=== PATIENT | male | born 1960 | race Caucasian/White ===

== ENCOUNTER 2024-02-15 11:19 | Day surgery (SDC) | payer BC ==
[~2024-02-15] VITALS: Ht 180.3 cm; Wt 109.5 kg
[2024-02-15] VITALS (7 sets, daily range): BP systolic 128–158; BP diastolic 75–78; PULSE 70–83; TEMP 97.8–98
[~2024-02-15 11:19] MED LIST: ALBUTEROL SULFAT3 M3; ALBUTEROL0.83 MG/ML IH; ALBUTEROL1.25 MG/3 IH; ALEVE 220MG220 MG PO; AMBIEN 10MG10 MG PO; ANTI-DIARRHEAL2 MG PO; ASPIRIN 32325 MG/TAB PO; BALANCE B-1001 TA1 PO; BYSTOLIC10 MG PO; BYSTOLIC20 MG PO; CALCIUM1 CAP PO; CATAPRES 0.1MG0.1 MG PO; CLARITIN 1010 MG/TAB PO; COUGH & COLD1 TAB PO; CURCUMIN95% PO; DIOVAN 160MG160 MG PO; DIOVAN HCT 12.51 TA2 PO; FLEXERIL 1010 MG/TAB PO; FLONASE NASAL S16 GM NS; FLONASEALLERGY NS; GOOD SENSE SLEE25 M1 PO; IMDUR 30MG30 MG/TAB PO; LIORESAL 1010 MG/TAB; LUTEIN20 M1 PO; MAG-OX 400400 MG/TAB PO; MEDI SLEEP; MELATONIN5 M1 SL; MULTIPLE VITAMI1 CAP PO; MULTIPLE VITAMI1 TA5 PO; NATURAL FISH1200 MG PO; NITROSTAT0.4 MG/TAB SL; OSTEO-BI-FLEX 21 TAB PO; POTASSIUM; PRILOSEC 20MG20 MG PO; PROAIR HFA0.09 MG/AC IH; PROBIOTIC-10 370 MG PO; PROBIOTIC-MAJOR PO; PULMICORT90 MCG/Act; REQUIP 0.5MG0.5 MG PO; REQUIP 1MG T1 MG/TAB PO; ROBAXIN 50500 MG/TAB PO; SINGULAIR 110 MG/TAB PO; SOMA 350MG350 MG/TAB PO; TRICOR145 MG PO; TURMERIC500 MG PO; XOPENEX 0.0.63 MG/3 IH; ZANAFLEX 4MG TAB4 MG PO; ZEAXANTHIN PO; ZYRTEC 10MG10 MG PO; [UNRECOGNIZED DRUG - OTHER] PO
[2024-02-15] MEDS ORDERED: LR 1,000 ML IV SCH (12:00)
[2024-02-15] MEDS ORDERED: Famotidine 20 MG TAB PO SCH (12:00)
[2024-02-15] MEDS ORDERED: Lidocaine 1% w EPI (1:100,000) 20 ML Multi-Dose VIAL SQ ONE ×2 (13:00)
[2024-02-15] MEDS ORDERED: FISH OIL 1000MG1 CAP PO (13:24)
[2024-02-15] MEDS ORDERED: PREVAGEN PO (13:32)
[2024-02-15] MEDS ORDERED: WEGOVY0.25 MG/0. SQ (13:33)
[2024-02-15] MEDS ORDERED: Ondansetron 4 MG/2 ML VIAL ONE (13:42)
[2024-02-15] MEDS ORDERED: fentaNYL 50 MCG/ML 2 ML VIAL ONE ×2 (13:42→15:21)
[2024-02-15] MEDS ORDERED: Lidocaine PF 2% (20 MG/ML) 5 ML VIAL ONE (13:42)
[2024-02-15] MEDS ORDERED: NS 10 ML IV ONE (13:42)
[2024-02-15] MEDS ORDERED: diphenhydrAMINE 50 MG/ML 1 ML VIAL ONE (13:42)
[2024-02-15] MEDS ORDERED: dexAMETHasone 10 MG/ML VIAL ONE (13:42)
[2024-02-15] MEDS ORDERED: Succinylcholine PF 200 MG/10 ML SYRINGE IV ONE (13:43)
[2024-02-15] MEDS ORDERED: Rocuronium 50 MG/5 ML Multi-Dose VIAL ONE (13:43)
[2024-02-15] MEDS ORDERED: ePHEDrine 50 MG/ML VIAL ONE (15:47)
[2024-02-15] MEDS ORDERED: hydrALAZINE 20 MG/ML 1 ML VIAL IV PRN (16:00)
[2024-02-15] MEDS ORDERED: Morphine 2 MG/1 ML VIAL [PACU/SDC ONLY] IV PRN (16:00)
[2024-02-15] MEDS ORDERED: HYDROmorphone 1 MG/1 ML SYRINGE [PACU/SDC ONLY] IV PRN (16:00)
[2024-02-15] MEDS ORDERED: Ondansetron 4 MG/2 ML VIAL IV PRN ×2 (16:00→16:15)
[2024-02-15] MEDS ORDERED: fentaNYL 50 MCG/ML 1 ML SYRINGE/VIAL [PACU/SDC ONLY] IV PRN (16:00)
[2024-02-15] MEDS ORDERED: Naloxone 0.4 MG/ML VIAL IV PRN (16:15)
[2024-02-15] MEDS ORDERED: oxyCODONE 5 MG TAB PO PRN ×2 (16:15)
[2024-02-15] MEDS ORDERED: Acetaminophen 500 MG TAB PO SCH (17:01)
--- NOTE | 2024-02-15 18:20 | NUR ---
1655: PT TO BAY 8 PER CART FROM PACU. REPORT RECEIVED. VSS. BREATHING EVEN AND UNLABORED. PT ALERT AND ORIENTED BUT DROWSEY. INCISION TO RIGHT NECK AND CHEST C/D/I WITH STERI STRIPS. PT TOLERATING ICE CHIPS AND DENIES NAUSEA AND PAIN. NO FURTHER NEEDS NOTED. RESTING IN COT. CALL LIGHT IN REACH. TRENTON GRIFFIN, AT BEDSIDE. 1710: PT ALERT AND ORIENTED. VSS. BREATHING EVEN AND UNLABORED. STERI STRIPS REMAIN C/D/I. TOLERATING ICE CHIPS W/O NAUSEA AND REQUESTING CRACKERS. DENIES PAIN. NO FURTHER NEEDS NOTED. RESTING IN COT. CALL LIGHT IN REACH. TRENTON, AT BEDSIDE. 1725: PT ALERT AND ORIENTED. VSS. BREATHING EVEN AND UNLABORED. STERI STRIPS REMAIN C/D/I. TOLERATING ICE CHIPS AND CRACKERS. DENIES PAIN AND NAUSEA. NO FURTHER NEEDS NOTE. RESTING IN COT. CALL LIGHT IN REACH. 1740: PT ALERT AND ORIENTED. VSS. BREATHING EVEN AND UNLABORED. STERI STRIPS REMAIN C/D/I. DENIES NAUSEA AND SURGICAL PAIN. RETURNED TO PRE-OP BASELINE. RESTING IN COT. CALL LIGHT IN REACH. 1755: PT ALERT AND ORIENTED. VSS. BREATHING EVEN AND UNLABORED. STERI STRIPS REMAIND C/D/I. DENIES NAUSEA AND SURGICAL PAIN. RESTING IN COT. CALL LIGHT IN REACH. TRENTON GRIFFIN, AT BEDSIDE. 1800: DISCHARGE EDUCATION COMPLETED. PT STATED UNDERSTANDING OF HOME AND DISCHARGE INSTRUCTIONS. DC PAPERWORK GIVEN TO PT. IV DC'D AT THIS TIME. PT TO ASSIST WITH DRESSING. 1810: PT AMBULATED W/O ASSIST TO WHEELCHAIR. PT OFF UNIT AT THIS TIME. PT DISCHARGED TO HOME WITH TRENTON GRIFFIN.
[2024-02-15] MEDS ORDERED: Ibuprofen 600 MG TAB PO SCH (20:01)
== END 2024-02-15 18:10 | disposition home or self-care (01) ==
LOC: SDCO 11:19
DX: G47.33 Obstructive sleep apnea (adult) (pediatric) (principal); Z86.16 Personal history of COVID-19; Z79.82 Long term (current) use of aspirin; Z86.718 Personal history of other venous thrombosis and embolism; Z85.828 Personal history of other malignant neoplasm of skin
CPT/HCPCS: C1767; C1778; C1883; J0690; J1100; J1200; J2405; J2704; J3010; J7120